=== PATIENT | female | born 1955 | race Caucasian/White ===

== ENCOUNTER 2020-06-22 08:41 | Day surgery (SDC) | payer OTHER ==
[~2020-06-22] VITALS: Ht 162.6 cm; Wt 96.2 kg
[2020-06-22] MEDS ORDERED: diphenhydrAMINE 50 MG/ML VIAL ONE (11:17)
[2020-06-22] MEDS ORDERED: fentaNYL citrate 0.05 MG/ML VIAL ONE (11:17)
[2020-06-22] MEDS ORDERED: MIDAZOLAM 5 MG/5 ML VIAL ONE (11:18)
[2020-06-22] MEDS: fentaNYL citrate 0.05 MG/ML VIAL IVP ONE (11:32)
[2020-06-22] MEDS: MIDAZOLAM 2 MG/2 ML VIAL IVP ONE (11:33)
[2020-06-22] MEDS: LIDOCAINE 2% 100 MG/5 ML UJET TP ONE (11:35)
[2020-06-22] MEDS: SIMETHICONE 40 MG/0.6 ML PO PRN (11:45)
[2020-06-22] MEDS ORDERED: LIDOCAINE 2% 100 MG/5 ML UJET TP ONE (13:10)
== END 2020-06-22 13:04 | disposition home or self-care (01) ==
LOC: MDS 08:41 → MFCC 09:29 → MDS 13:04
PROVIDERS: ATTEND Internal Medicine Gastroenterology
DX: K59.00 Constipation, unspecified (principal); K62.1 Rectal polyp; K63.5 Polyp of colon; Z86.010 Personal history of colon polyps; K21.9 Gastro-esophageal reflux disease without esophagitis; I10 Essential (primary) hypertension; F17.200 Nicotine dependence, unspecified, uncomplicated; Z79.899 Other long term (current) drug therapy
CPT/HCPCS: 45385; J2250; J3010; 88305; J1200

== ENCOUNTER 2021-01-18 07:39 | Day surgery (SDC) | payer OTHER, SELFPAY ==
[~2021-01-18] VITALS: Ht 162.6 cm; Wt 88.9 kg
[2021-01-18] MEDS ORDERED: MIDAZOLAM 5 MG/5 ML VIAL ONE (08:42)
[2021-01-18] MEDS ORDERED: diphenhydrAMINE 50 MG/ML VIAL ONE (08:42)
[2021-01-18] MEDS ORDERED: fentaNYL citrate 0.05 MG/ML VIAL ONE (08:42)
[2021-01-18] MEDS ORDERED: MIDAZOLAM 2 MG/2 ML VIAL IVP ONE (09:20)
[2021-01-18] MEDS ORDERED: fentaNYL citrate 0.05 MG/ML VIAL IVP ONE (09:20)
== END 2021-01-18 10:00 | disposition home or self-care (01) ==
LOC: MDS 07:39 → MFCC 07:39 → MDS 10:00
PROVIDERS: ATTEND Internal Medicine Gastroenterology
DX: K59.00 Constipation, unspecified (principal); K21.9 Gastro-esophageal reflux disease without esophagitis; R10.13 Epigastric pain; Z20.822 Contact with and (suspected) exposure to COVID-19
CPT/HCPCS: 43239; 87426; 88305; 88312; 88313; 88342; J2250; J3010; J1200